=== PATIENT | male | born 1955 | race Caucasian/White ===

== ENCOUNTER 2021-04-02 02:51 | Emergency (ER) | payer OTHER | END 2021-04-02 03:45 | LOC: ERS 02:51 | DX: G40.409 Other generalized epilepsy and epileptic syndromes, not intractable, without status epilepticus (principal); R04.0 Epistaxis | CPT/HCPCS: 99284 ==

== ENCOUNTER 2021-05-13 02:02 | Emergency (ER) | payer OTHER ==
[2021-05-13] MEDS ORDERED: levETIRAcetam 500 MG TAB PO SCH (02:30)
== END 2021-05-13 02:38 ==
LOC: ERS 02:02
DX: G40.909 Epilepsy, unspecified, not intractable, without status epilepticus (principal)
CPT/HCPCS: 99284